=== PATIENT | male | born 1940 | race Two or more races ===

== ENCOUNTER 2020-07-10 08:35 | Emergency (ER) | payer MEDICARE ==
[~2020-07-10] VITALS: Ht 170.2 cm; Wt 59.0 kg
[~2020-07-10 08:35] MED LIST: METFORMIN HCL500 M1 ORAL
[2020-07-10 08:38] VITALS: BP 107/77
--- NOTE | 2020-07-10 08:59 | Emergency Room Report ---
History of Present Illness General Chief Complaint: Male Urogenital Problems Source: Patient Present Illness HPI Disclaimer: Please note that this report is being documented using Voxy[employer] technology. This can lead to erroneous entry secondary to incorrect interpretation by the dictating instrument. HPI: 87-year-old male history of diabetes and BPH presents with urinary retention. He states he has been unable to urinate for the past 3 days. Some dribbling. No dysuria. But does complain of suprapubic pain. He has required a Macias catheter in the past. He denies any fevers, nausea, vomiting. PMH: Diabetes and urinary retention PSH: Reviewed Social Hx: No smoking drinking or illicit drug use. Allergies: Coded Allergies: No Known Allergies (Unverified , 07/29/15) COVID-19 Screening Contact w/high risk pt: No Experienced COVID-19 symptoms?: No COVID-19 Testing performed TOOLS ADMINISTRATOR: No Patient History Reviewed Nursing Documentation: PMH: Agreed; PSxH: Agreed Nursing Documentation-PMH Past Medical History: No History, Except For Hx Diabetes: Yes Hx Dialysis: No - BPH Review of Systems All Other Systems: negative except mentioned in HPI Physical Exam Vital Signs Date Time Temp Pulse Resp B/P (MAP) Pulse Ox O2 Delivery O2 Flow Rate FiO2 07/10/20 08:38 97.9 97 17 107/77 (87) 97 Room Air Sp02 EP Interpretation: reviewed, normal General Appearance: well appearing, no apparent distress Head: normocephalic, atraumatic Eyes: bilateral eye PERRL, bilateral eye EOMI ENT: hearing grossly normal, moist mucus membranes Neck: full range of motion, supple Respiratory: lungs clear, normal breath sounds, no rhonchi, no respiratory distress, no retraction, no wheezing Cardiovascular #1: normal peripheral pulses, regular rate, rhythm, no murmur Gastrointestinal: soft, non-distended, no guarding, other - Mild supra pubic tenderness Neurologic: alert, oriented x3, no focal defects Skin: normal color, warm/dry Medical Decision Making Diagnostic Impression: Primary Impression: Urinary retention ER Course Patient presents for urinary retention. He has a history of BPH. Differential included but not limited to BPH, prostatitis, UTI to name a few. Patient had been taking Flomax in the past but has been off the medication for quite some time. In the ER Macias catheter was placed. Urinalysis was sent. Urinalysis did have 1+ leukocytes. I will treat patient with a p.o. antibiotic in addition to Flomax. He will follow up with his primary doctor in 3 days for a voiding t rial. Return precautions given. Stable for discharge. Last Vital Signs Date Time Temp Pulse Resp B/P (MAP) Pulse Ox O2 Delivery O2 Flow Rate FiO2 07/10/20 08:38 97.9 97 17 107/77 (87) 97 Room Air Status: improved Disposition: HOME, SELF-CARE Condition: Improved Scripts Levofloxacin* (LEVOFLOXACIN*) 750 Mg Tablet 750 MG ORAL DAILY, #7 TAB Prov: Bc Medel M.D. 07/10/20 Tamsulosin HCl (Flomax) 0.4 Mg Cap.er.24h 0.4 MG ORAL DAILY for BPH, #30 CAP Prov: Bc Medel M.D. 07/10/20 Bc Medel M.D. Jul 10, 2020 08:59
--- NOTE | 2020-07-10 09:00 | NUR ---
Patient coming to the ER with complaint of urine retention x 3 days in company of his daughter. C/o pain to lower abdomen, painful to the touch as well. V/S stable. Afebrile. No vomiting or nausea. Ambulatory. Seen by MD. Macias catheter inserted yeilding 1100 ml of dark gavino fluid. Specimen sent to lab.
[2020-07-10 09:29] LABS: APPEARANCE,URINE SLIGHTLY CLOUDY; BILIRUBIN, URINE NEGATIVE (NEGATIVE); GLUCOSE, URINE (UA) NEGATIVE (NEGATIVE); KETONES,URINE 2+ (NEGATIVE); LEUKOCYTE ESTERASE ,URINE 1+ (NEGATIVE); NITRITE,URINE NEGATIVE (NEGATIVE); PH,URINE 5 (4.5-8.0); PROTEIN,URINE 1+ (NEGATIVE); UROBILINOGEN,URINE NORMAL MG/DL (0.0-1.0)
[2020-07-10 09:32] LABS: COLOR,URINE YELLOW
[2020-07-10] MEDS ORDERED: LEVOFLOXACIN750 MG ORAL (09:36)
[2020-07-10] MEDS ORDERED: FLOMAX0.4 MG ORAL (09:36)
--- NOTE | 2020-07-10 09:49 | NUR ---
Cleared for discharge. Rx given for Levaquin and Flomax. Leg bag attached to FC . One given to take home. Demonstatration given to attach bag, empty bag and attatching leg straps. Daughter voices understanding of instructions.
== END 2020-07-10 09:40 | disposition home or self-care (01) ==
LOC: EMR 08:50
DX: R33.9 Retention of urine, unspecified (principal); E11.9 Type 2 diabetes mellitus without complications; N40.0 Benign prostatic hyperplasia without lower urinary tract symptoms
CPT/HCPCS: 81003; 87086; 99283

== ENCOUNTER 2020-07-12 09:27 | Emergency (ER) | payer MEDICARE, OTHER ==
[~2020-07-12] VITALS: Ht 177.8 cm; Wt 68.0 kg
[~2020-07-12 09:27] MED LIST changes: +FLOMAX0.4 MG ORAL; +LEVOFLOXACIN750 MG ORAL
[2020-07-12 09:30] VITALS: BP 112/79
[2020-07-12 09:58] VITALS: BP 136/78
--- NOTE | 2020-07-13 06:56 | Emergency Room Report ---
History of Present Illness General Chief Complaint: Male Urogenital Problems Source: Patient Present Illness HPI 79-year-old male presents for Macias catheter removal. Was seen here 2 days ago and had Macias catheter placed by ED. History of BPH. Patient is here to have the catheter removed. States he has been taking the medications prescribed. States the catheter is working. Denies pain. Denies fevers or chills. Denies flank pain. No other aggravating relieving factors. Denies any other associated symptoms Allergies: Coded Allergies: No Known Allergies (Unverified , 07/29/15) COVID-19 Screening Contact w/high risk pt: No Experienced COVID-19 symptoms?: No COVID-19 Testing performed WORKERS COMPENSATION SPECIALIST: No Patient History Past Medical History: DM, other - BPH Past Surgical History: none Pertinent Family History: none Social History: Denies: smoking, alcohol use, drug use Immunizations: UTD Reviewed Nursing Documentation: PMH: Agreed; PSxH: Agreed Nursing Documentation-PMH Past Medical History: No History, Except For Hx Diabetes: Yes Hx Dialysis: No - BPH Review of Systems All Other Systems: negative except mentioned in HPI Physical Exam Vital Signs Date Time Temp Pulse Resp B/P (MAP) Pulse Ox O2 Delivery O2 Flow Rate FiO2 07/12/20 09:30 97.9 20 112/79 95 Room Air 07/12/20 09:30 92 Sp02 EP Interpretation: reviewed, normal General Appearance: no apparent distress, alert, GCS 15, non-toxic Head: normocephalic, atraumatic Eyes: bilateral eye normal inspection, bilateral eye PERRL ENT: hearing grossly normal, normal pharynx, no angioedema, normal voice Neck: full range of motion, supple/symm/no masses Respiratory: chest non-tender, lungs clear, normal breath sounds, speaking full sentences Cardiovascular #1: regular rate, rhythm, no edema Cardiovascular #2: 2+ carotid (R), 2+ carotid (L), 2+ radial (R), 2+ radial (L), 2+ dorsalis pedis (R), 2+ dorsalis pedis (L) Gastrointestinal: normal bowel sounds, non tender, soft, non-distended, no guarding, no rebound Rectal: deferred Genitourinary: normal inspection, no CVA tenderness Musculoskeletal: back normal, normal range of motion, gait/station normal, non- tender Neurologic: alert, motor strength/tone normal, oriented x3, sensory intact, responsive, speech normal Psychiatric: judgement/insight normal, memory normal, mood/affect normal, no suicidal/homicidal ideation Reflexes: 3+ bicep (R), 3+ bicep (L), 3+ tricep (R), 3+ tricep (L), 3+ knee (R), 3+ knee (L) Lymphatic: no adenopathy Medical Decision Making Diagnostic Impression: Primary Impression: Encounter for Macias catheter removal ER Course Patient here for Macias catheter removal. History of BPH Initial history and physical Macias catheter removed without complication. Discussed with patient. States he does not have a urologist at this time. I will provide referrals. Encourage patient to continue his Flomax as prescribed Last Vital Signs Date Time Temp Pulse Resp B/P (MAP) Pulse Ox O2 Delivery O2 Flow Rate FiO2 07/12/20 09:58 96.3 89 18 136/78 98 Room Air Status: improved Disposition: HOME, SELF-CARE Condition: Stable Referrals: Robson Santos M.D. NON PHYSICIAN (PCP) Patient Instructions: Benign Prostatic Hyperplasia Vince Woods MD Jul 13, 2020 06:56
== END 2020-07-12 09:59 | disposition home or self-care (01) ==
LOC: EMR 09:42
DX: Z46.6 Encounter for fitting and adjustment of urinary device (principal); N40.0 Benign prostatic hyperplasia without lower urinary tract symptoms; E11.9 Type 2 diabetes mellitus without complications
CPT/HCPCS: 99282

== ENCOUNTER 2020-07-14 10:08 | Emergency (ER) | payer MEDICARE ==
[~2020-07-14] VITALS: Ht 177.8 cm; Wt 68.0 kg
[2020-07-14] MEDS ORDERED: Dyna-Hex 2% Top Sol 2oz TOPIC ONE (10:30)
--- NOTE | 2020-07-14 10:40 | NUR ---
ED Nurse Note:pt c/o not being able to urinate x2 days. he states just a tiny bit comes out. pt has been here several times for the same thing, gets a garcia and goes home. spoke with his son and explained the importance of going to urologist dipesh. pt tolerated procedure
[2020-07-14 10:45] VITALS: BP 110/74
--- NOTE | 2020-07-14 10:47 | Emergency Room Report ---
History of Present Illness General Chief Complaint: Male Urogenital Problems Source: Patient Present Illness HPI 79-year-old male presents for evaluation. Urinary retention x1 day. History of BPH. Was seen here 2 days ago to have Garcia catheter removed. Was placed 2 days earlier. Is taking his medications. Does not have a urologist at this point. Denies pain. Denies fevers or chills. No other aggravating relieving factors. Denies any other associated symptoms Allergies: Coded Allergies: No Known Allergies (Unverified , 07/29/15) COVID-19 Screening Contact w/high risk pt: No Experienced COVID-19 symptoms?: No COVID-19 Testing performed FIELD NATURALIST: No Patient History Past Medical History: DM Past Surgical History: none Pertinent Family History: none Social History: Denies: smoking, alcohol use, drug use Immunizations: UTD Reviewed Nursing Documentation: PMH: Agreed; PSxH: Agreed Nursing Documentation-PMH Past Medical History: No History, Except For Hx Diabetes: Yes Hx Dialysis: No - BPH Review of Systems All Other Systems: negative except mentioned in HPI Physical Exam Vital Signs Date Time Temp Pulse Resp B/P (MAP) Pulse Ox O2 Delivery O2 Flow Rate FiO2 07/14/20 10:14 98.4 84 15 110/74 (86) 96 Room Air Sp02 EP Interpretation: reviewed, normal General Appearance: no apparent distress, alert, GCS 15, non-toxic Head: normocephalic, atraumatic Eyes: bilateral eye normal inspection, bilateral eye PERRL ENT: hearing grossly normal, normal pharynx, no angioedema, normal voice Neck: full range of motion, supple/symm/no masses Respiratory: chest non-tender, lungs clear, normal breath sounds, speaking full sentences Cardiovascular #1: regular rate, rhythm, no edema Cardiovascular #2: 2+ carotid (R), 2+ carotid (L), 2+ radial (R), 2+ radial (L), 2+ dorsalis pedis (R), 2+ dorsalis pedis (L) Gastrointestinal: normal bowel sounds, non tender, soft, non-distended, no guarding, no rebound Rectal: deferred Genitourinary: normal inspection, no CVA tenderness Musculoskeletal: back normal, normal range of motion, gait/station normal, non- tender Neurologic: alert, motor strength/tone normal, oriented x3, sensory intact, responsive, speech normal Psychiatric: judgement/insight normal, memory normal, mood/affect normal, no suicidal/homicidal ideation Reflexes: 3+ bicep (R), 3+ bicep (L), 3+ tricep (R), 3+ tricep (L), 3+ knee (R), 3+ knee (L) Lymphatic: no adenopathy Medical Decision Making Diagnostic Impression: Primary Impression: Urinary retention ER Course Hospital Course 79-year-old M presents to ED complaining of urinary retention. h/o BPH Differential diagnoses include: obstruction, UTI, BPH Clinical course Patient placed on stretcher. After initial history and physical I ordered UA with immediate relief of obstruction I discussed findings with patient. He needs to see a urologist otherwise he will keep returning to the ED for Garcia catheter placement and removal. I will provide referrals. Discussed with his son Diagnosis - urinary retention Stable and discharged home with garcia + leg bag. Instructed to followup with PMD/urologist. Return to ED if symptoms recur or worsen Last Vital Signs Date Time Temp Pulse Resp B/P (MAP) Pulse Ox O2 Delivery O2 Flow Rate FiO2 07/14/20 10:14 98.4 84 15 110/74 (86) 96 Room Air Status: improved Disposition: HOME, SELF-CARE Condition: Stable Referrals: Sachin Roque MD, Sameer M.D. Patient Instructions: Garcia Catheter Care, Adult, [id number] Vince Woods MD Jul 14, 2020 10:47
--- NOTE | 2020-07-14 10:49 | NUR ---
ER DISCHARGE NOTE: Patient is cleared to be discharged per ERMD, pt is aox4, on room air, with stable vital signs. pt was given dc instructions, pt and family was able to verbalize understanding, pt id band removed without complications. pt is able to ambulate with steady gait. pt took all belongings.
== END 2020-07-14 10:46 | disposition home or self-care (01) ==
LOC: EMR 10:43
DX: R33.9 Retention of urine, unspecified (principal); E11.9 Type 2 diabetes mellitus without complications
CPT/HCPCS: 51702; 99282

== ENCOUNTER 2020-08-17 06:51 | Emergency (ER) | payer MEDICARE ==
[~2020-08-17] VITALS: Ht 180.3 cm; Wt 108.9 kg
[2020-08-17 07:08] VITALS: BP 113/83
--- NOTE | 2020-08-17 07:08 | NUR ---
ED Nurse Note: pt has hx of urologic illness recently had garcia catheter removed tuesday08/15/20, was advised by MD if he did not urinate post removal go to ER for garcia placement and follow up with urologist, hx of Diabebtes type 2, AOx4, ambulatory, vitals stable
--- NOTE | 2020-08-17 07:20 | Emergency Room Report ---
History of Present Illness General Chief Complaint: Male Urogenital Problems Source: Patient, Family Member Present Illness HPI Patient presents with inability to urinate and fullness in his bladder area. A Macias was removed 2 days ago after being in for 2 weeks. The patient is taking Flomax and amoxicillin. He denies fevers or chills. He has mild pain in the suprapubic area of 4-5/10. He denies nausea, vomiting or diarrhea. He has a little bit of discomfort also the tip of his penis. He was seen Tuesday and had cystoscopy. They were told that he had an infection and started on amoxicillin. The urologist is Dr. Charles in [place]. Patient is also diabetic and takes Metformin. Patient denies exposure to Covid positive contacts. He has not been vaccinated yet. No sore throat, chest pain, palpitations, shortness of breath, joint pain, rashes. Allergies: Coded Allergies: No Known Allergies (Unverified , 07/29/15) COVID-19 Screening Contact w/high risk pt: No Experienced COVID-19 symptoms?: No COVID-19 Testing performed INFECTION CONTROL SPECIALIST: No Patient History Past Medical History: see triage record, old chart reviewed, DM, other - bph Social History: Denies: smoking Social History Narrative born [facility] Reviewed Nursing Documentation: PMH: Agreed; PSxH: Agreed Nursing Documentation-PMH Hx Diabetes: Yes Hx Dialysis: No - BPH Review of Systems All Other Systems: negative except mentioned in HPI Physical Exam Vital Signs Date Time Temp Pulse Resp B/P (MAP) Pulse Ox O2 Delivery O2 Flow Rate FiO2 08/17/20 06:58 97.9 93 20 113/83 (93) 96 Room Air Sp02 EP Interpretation: reviewed, normal General Appearance: well appearing, no apparent distress, GCS 15, non-toxic Head: normocephalic Eyes: bilateral eye PERRL, bilateral eye other - Arcus bilaterally ENT: other - Wearing a mask Neck: supple Respiratory: lungs clear, normal breath sounds Cardiovascular #1: regular rate, rhythm Cardiovascular #2: 2+ radial (R) Gastrointestinal: normal inspection, normal bowel sounds, non-distended, tenderness - Minimal suprapubic area Genitourinary: normal inspection, no CVA tenderness Musculoskeletal: back normal, normal range of motion, gait/station normal Neurologic: alert, oriented x3, grossly normal Psychiatric: mood/affect normal Skin: no rash, warm/dry Medical Decision Making Diagnostic Impression: Primary Impression: Urinary retention Additional Impression: UTI (urinary tract infection) Qualified Codes: T83.511A - Infection and inflammatory reaction due to indwelling urethral catheter, initial encounter; N39.0 - Urinary tract infection, site not specified ER Course Patient presents with difficulty urinating with a history of urinary retention. Differential includes BPH, UTI, medication reaction amongst others. We need to exclude any renal dysfunction at this time and blood work will be obtained. The Macias catheter will be passed and urine sent. It is possible that he has an organism that might be resistant to amoxicillin if UTI is found. 500 ml urine with Macias. Normal WBC. Elevated BUN. Pyuria. Only culture we have is from 07/10 which grew rafaela. The fact he was on amoxicillin suggests a resistant organism. In the past he was also treated with Levaquin. Will start on Keflex. Trouble swallowing pills. Liquid prescribed. Discussed findings and treatment plan with son and patient. Patient stable for outpatient observation and treatment. Laboratory Tests Test 08/17/20 07:30 White Blood Count 5.1 K/UL (4.8-10.8) Red Blood Count 4.64 M/UL (4.70-6.10) L Hemoglobin 14.0 G/DL (14.2-18.0) L Hematocrit 43.6 % (42.0-52.0) Mean Corpuscular Volume 94 FL (80-99) Mean Corpuscular Hemoglobin 30.1 PG (27.0-31.0) Mean Corpuscular Hemoglobin Concent 32.0 G/DL (32.0-36.0) Red Cell Distribution Width 13.8 % (11.6-14.8) Platelet Count 85 K/UL (150-450) L Mean Platelet Volume 11.5 FL (6.5-10.1) H Neutrophils (%) (Auto) % (45.0-75.0) Lymphocytes (%) (Auto) % (20.0-45.0) Monocytes (%) (Auto) % (1.0-10.0) Eosinophils (%) (Auto) % (0.0-3.0) Basophils (%) (Auto) % (0.0-2.0) Neutrophils % (Manual) Pending Lymphocytes % (Manual) Pending Platelet Estimate Pending Platelet Morphology Pending Urine Color Pale yellow Urine Appearance Slightly cloudy Urine pH 5 (4.5-8.0) Urine Specific [place] 1.020 (1.005-1.035) Urine Protein Negative (NEGATIVE) Urine Glucose (UA) Negative (NEGATIVE) Urine Ketones 1+ (NEGATIVE) H Urine Blood 2+ (NEGATIVE) H Urine Nitrite Negative (NEGATIVE) Urine Bilirubin Negative (NEGATIVE) Urine Urobilinogen 1 MG/DL (0.0-1.0) H Urine Leukocyte Esterase 2+ (NEGATIVE) H Urine RBC 0-2 /HPF (0 - 0) H Urine WBC 60-80 /HPF (0 - 0) H Urine Squamous Epithelial Cells Occasional /LPF Urine Bacteria Occasional /HPF (NONE) Urine Yeast Occasional /HPF (NONE) H Sodium Level 142 MMOL/L (136-145) Potassium Level 4.0 MMOL/L (3.5-5.1) Chloride Level 105 MMOL/L (98-107) Carbon Dioxide Level 29 MMOL/L (21-32) Anion Gap 8 mmol/L (5-15) Blood Urea Nitrogen 20 mg/dL (7-18) H Creatinine 1.0 MG/DL (0.55-1.30) Estimated Glomerular Filtration Rate > 60 mL/min (>60) Glucose Level 113 MG/DL (74-106) H Calcium Level 9.6 MG/DL (8.5-10.1) Total Bilirubin 1.5 MG/DL (0.2-1.0) H Direct Bilirubin 0.4 MG/DL (0.0-0.3) H Aspartate Amino Transferase (AST) 16 U/L (15-37) Alanine Aminotransferase (ALT) 12 U/L (12-78) Alkaline Phosphatase 85 U/L (46-116) Total Protein 7.3 G/DL (6.4-8.2) Albumin 4.0 G/DL (3.4-5.0) Globulin 3.3 g/dL Albumin/Globulin Ratio 1.2 (1.0-2.7) Last Vital Signs Date Time Temp Pulse Resp B/P (MAP) Pulse Ox O2 Delivery O2 Flow Rate FiO2 08/17/20 08:34 82 18 115/87 98 Room Air 08/17/20 07:08 97.9 Status: improved Disposition: HOME, SELF-CARE Condition: Improved Scripts Cephalexin* (KEFLEX*) 250 Mg/5 Ml Susp.recon 10 ML ORAL FOUR TIMES A DAY for 7 Days, #280 ML 0 Refills Prov: Sharan Boswell MD 08/17/20 Referrals: NON PHYSICIAN (PCP) Sharan Boswell MD Aug 17, 2020 07:20
[2020-08-17 07:41] LABS: APPEARANCE,URINE SLIGHTLY CLOUDY; BILIRUBIN, URINE NEGATIVE (NEGATIVE); GLUCOSE, URINE (UA) NEGATIVE (NEGATIVE); HEMATOCRIT 43.6 % (42.0-52.0); KETONES,URINE 1+ (NEGATIVE); LEUKOCYTE ESTERASE ,URINE 2+ (NEGATIVE); MEAN CORPUSCULAR VOLUME 94 FL (80-99); NITRITE,URINE NEGATIVE (NEGATIVE); PH,URINE 5 (4.5-8.0); PLATELET COUNT 85 K/UL (150-450); PROTEIN,URINE NEGATIVE (NEGATIVE); RED BLOOD COUNT 4.64 M/UL (4.70-6.10); RED CELL DISTRIBUTION WIDTH 13.8 % (11.6-14.8); UROBILINOGEN,URINE 1 MG/DL (0.0-1.0); WHITE BLOOD COUNT 5.1 K/UL (4.8-10.8)
[2020-08-17 07:43] LABS: COLOR,URINE PALE YELLOW
[2020-08-17 07:49] LABS: ANION GAP 8 mmol/L (5-15); BLOOD UREA NITROGEN 20 mg/dL (7-18); CALCIUM 9.6 MG/DL (8.5-10.1); CARBON DIOXIDE 29 MMOL/L (21-32); CHLORIDE 105 MMOL/L (98-107); SODIUM 142 MMOL/L (136-145)
[2020-08-17 08:00] LABS: ALANINE AMINOTRANSFERASE 12 U/L (12-78); ALBUMIN/GLOBULIN RATIO 1.2 (1.0-2.7); ALKALINE PHOSPHATASE 85 U/L (46-116); ASPARTATE AMINO TRANSFERASE 16 U/L (15-37); BILIRUBIN,DIRECT 0.4 MG/DL (0.0-0.3); BILIRUBIN,TOTAL 1.5 MG/DL (0.2-1.0)
[2020-08-17] MEDS ORDERED: CEPHALEXIN500 MG ORAL ×2 (08:00)
[2020-08-17] MEDS ORDERED: Cephalexin 500mg cap ORAL ONE (08:00)
[2020-08-17] MEDS ORDERED: CEPHALEXIN250 MG/5 M ORAL (08:12)
--- NOTE | 2020-08-17 08:31 | NUR ---
ED Nurse Note: pt has garcia placed, 15 [place] citizen. garcia patent & draining. pt had total 500mL urine out. switched to leg bag per MD order, pt given extra leg bag. pt & son verbalized understanding of care and followup instructions. Pt cleared by health care Provider for discharge. DC instructions/prescription was given and explained to pt and verbalized understanding of teachings, with son at bedside. All medical deviecs such as ID band removed. Pt is AAO x4, ambulatory and left with all personal belongings.
[2020-08-17 08:34] VITALS: BP 115/87
== END 2020-08-17 08:40 | disposition home or self-care (01) ==
LOC: EMR 07:11
DX: T83.511A Infection and inflammatory reaction due to indwelling urethral catheter, initial encounter (principal); N39.0 Urinary tract infection, site not specified; E11.9 Type 2 diabetes mellitus without complications; Z79.84 Long term (current) use of oral hypoglycemic drugs
CPT/HCPCS: 36415; 51702; 80053; 81003; 82248; 85007; 85025; 87086; 99284